=== PATIENT | female | born 1935 | race Caucasian/White ===

== ENCOUNTER → 2017-04-13 | Outpatient (REF) | LOC: ZLAB.WCH 14:41 | DX: Z01.89 Encounter for other specified special examinations (principal) ==

== ENCOUNTER → 2017-11-23 | Outpatient (REF) | LOC: ZLAB.WCH 18:00 | DX: Z01.89 Encounter for other specified special examinations (principal) ==

== ENCOUNTER → 2018-02-16 | Outpatient (REF) | LOC: ZLAB.WCH 14:28 | DX: Z01.89 Encounter for other specified special examinations (principal) ==